=== PATIENT | male | born 1950 | race Asian ===

== ENCOUNTER 2017-05-22 17:54 | Emergency (ER) | payer MEDICARE, BC ==
[~2017-05-22] VITALS: Ht 157.5 cm; Wt 77.1 kg
[2017-05-22] MEDS ORDERED: ONDANSETRON HCL INJ 2 MG/ML VIAL IV STA (18:24)
[2017-05-22] MEDS ORDERED: MORPHINE SULFATE 2 MG/ML SYR IV STA (18:24)
[2017-05-22] MEDS ORDERED: SODIUM CHLORIDE 0.9% 500ML 500 ML IV STA (18:24)
[2017-05-22 19:17] LABS: BILIRUBIN,URINE NEGATIVE (NEGATIVE); COLOR,URINE YELLOW (YELLOW); KETONES,URINE TRACE (NEGATIVE); LEUKOCYTE ESTERASE ,URINE NEGATIVE (NEGATIVE); NITRITE,URINE NEGATIVE (NEGATIVE); URINE UROBILINOGEN 0.2 mg/dL (0.2 - 1)
[2017-05-22 19:19] LABS: BASOPHILS # (AUTO) 0.1 (0.0-0.1); BASOPHILS % 0.6 % (0.0-1.0); EOSINOPHILS % 0.2 % (0.0-6.0); HEMATOCRIT 45.3 % (38.2-49.6); HEMOGLOBIN 13.9 g/dL (14.0-18.0); LYMPHOCYTES # (AUTO) 1.2 (1.0-3.2); LYMPHOCYTES % 12.8 % (18.0-39.1); MEAN CORPUSCULAR HEMOGLOBIN 21.4 pg (28-32); MEAN CORPUSCULAR HGB CONC 30.7 g/dL (31-35); MEAN CORPUSCULAR VOLUME 69.6 fL (81-99); MONOCYTES # (AUTO) 0.3 (0.2-0.8); MONOCYTES % 2.8 % (4.4-11.3); NEUTROPHILS # (AUTO) 7.4 (2.1-6.9); NEUTROPHILS % 83.2 % (38.7-80.0); PLATELET COUNT 140 x10e3/uL (140-360); RED BLOOD COUNT 6.51 x10e6/uL (4.3-5.7); RED CELL DISTRIBUTION WIDTH 16.8 % (11.7-14.4)
[2017-05-22 19:22] LABS: CLARITY,URINE SL CLOUDY (CLEAR); PROTEIN,URINE DIPSTICK 1+ (NEGATIVE)
--- NOTE | 2017-05-22 19:22 | Diagnostic Imaging Report ---
CT Abdomen and Pelvis without contrast INDICATION: Right flank pain TECHNIQUE: Thin collimation axial images obtained from the diaphragm to the level of the pubic symphysis without nonionic intravenous contrast. RADIATION DOSE: Total DLP: 393.3 mGy*cm Estimated effective dose: (DLP x 0.015 x size factor) mSv CTDIvol has been reviewed. It is below the limits set by the Radiation Protocol Committee (RPC). COMPARISON: None. ABDOMEN FINDINGS: Lung Bases: Bibasilar microatelectasis without consolidation. Distal esophageal sawyer are mildly thickened. Liver: Visualized portions are decreased in attenuation without mass. Gallbladder: Present and appears normal. No ductal dilatation. Pancreas: Normal attenuation without mass. Spleen: Normal size without mass. Adrenal Glands: No evidence for mass. Kidneys: Right: Diffusely edematous with perinephric inflammation. There is a pixel sized calculus in the upper pole. Left: No renal calculus. No mass or hydronephrosis. Lymph Nodes: No enlarged abdominal, periaortic, or mesenteric lymph nodes. No enlarged pelvic lymph nodes. Aorta: Normal in diameter with atherosclerotic calcifications PELVIS FINDINGS: Bowel: Small Bowel: Normal in caliber with normal wall thickness. Large Bowel: Normal in caliber with normal wall thickness. No diverticula appreciated. Appendix: Normal. Bladder: Under distended but otherwise normal. Ureters: The right ureter is distended throughout its course. A calculus in the distal ureter just past the J-hook measures 3 mm. The left ureter is collapsed. Prostate gland and seminal vesicles are normal. No enlarged lymph nodes. No free fluid or fluid collection.. Bones: Mild to moderate degenerative changes of the spine. No focal osseous lesions. Soft tissues: Unremarkable.. IMPRESSION: 1. Obstructing calculus in the distal right ureter. Tiny right intrarenal calculus versus Maximilian plaque. 2. Hepatic steatosis. 3. Distal esophageal wall thickening may be the of reflux. Signed by: Dr. Isa Ramirez MD on 05/22/2017 7:19 PM
[2017-05-22 19:29] LABS: EPITHELIAL CELLS,URINE MANY /LPF; RBC,URINE >50 /HPF (0-5); WBC,URINE (MAN) 0-5 /HPF (0-5)
[2017-05-22 19:41] LABS: ALBUMIN 4.1 g/dL (3.5-5.0); CALCIUM 9.3 mg/dL (8.4-10.2); CREATININE, SERUM 1.4 mg/dL (0.72-1.25)
== END 2017-05-22 20:58 | disposition home or self-care (01) ==
LOC: ER 17:54
DX: R10.31 Right lower quadrant pain (principal); R11.0 Nausea; N20.1 Calculus of ureter
CPT/HCPCS: 36415; 74176; 80053; 81001; 85025; 99284; J2270; J2405; J7040